=== PATIENT | male | born 1975 | race African-American/Black ===

== ENCOUNTER 2022-10-15 16:33 | Inpatient (IN) | payer MEDICAID ==
[~2022-10-15] VITALS: Ht 172.7 cm; Wt 95.5 kg
[2022-10-15 17:31] VITALS: TEMP 99.6
[2022-10-15 18:00] LABS: BASOPHILS # (AUTO) 0.1 X10'3 (0-0.2); BASOPHILS % (AUTO) 0.3 % (0-1); EOSINOPHILS % (AUTO) 0.1 % (0-6); HEMATOCRIT 48.1 % (42.0-52.0); HEMOGLOBIN 15.9 g/dl (14.0-17.9); LYMPHOCYTES # (AUTO) 1.5 X10'3 (1.1-4.8); LYMPHOCYTES % (AUTO) 9.4 % (21-51); MEAN CORPUSCULAR HEMOGLOBIN 32.2 PG (27.0-31.0); MEAN CORPUSCULAR HGB CONC 33.1 g/dL (33.0-36.5); MEAN CORPUSCULAR VOLUME 97.3 FL (78-98); MEAN PLATELET VOLUME 7.8 FL (7.4-10.4); MONOCYTES % (AUTO) 6.2 % (2-12); NEUTROPHILS # (AUTO) 13.1 X10'3 (1.8-7.7); PLATELET COUNT 248 X10'3 (140-440); RED BLOOD COUNT 4.94 X10'6 (4.70-6.10); WHITE BLOOD COUNT 15.6 X10'3 (4.5-11.0)
[2022-10-15 18:18] LABS: ALANINE AMINOTRANSFERASE 13 U/L (12-78); ALBUMIN 3.9 G/DL (3.4-5.0); ALBUMIN/GLOBULIN RATIO 0.8 (1.1-1.5); ALKALINE PHOSPHATASE 99 IU/L (46-116); ANION GAP 8 (8-16); ASPARTATE AMINO TRANSFERASE 20 U/L (10-37); BILIRUBIN,TOTAL 0.9 MG/DL (0.1-1.0); BLOOD UREA NITROGEN 15 MG/DL (7-18); BUN/CREATININE RATIO 11.1 (10.0-20.0); CALCIUM 9.4 MG/DL (8.5-10.1); CHLORIDE 102 MMOL/L (99-107); CREATININE 1.35 MG/DL (0.60-1.10); GLUCOSE 130 MG/DL (70-104); LIPASE < 50 U/L (73-393); POTASSIUM 3.3 MMOL/L (3.5-5.1); SODIUM 140 MMOL/L (135-145); TOTAL CARBON DIOXIDE 29.6 MMOL/L (24-32); TOTAL PROTEIN 8.5 G/DL (6.4-8.2); eCRCL 64 ML/MIN; eGFR 56 ML/MIN
[2022-10-15] MEDS ORDERED: iohexol 300mg/ml 100ml inj. ONE (18:26)
[2022-10-15 19:12] LABS: ETHANOL < 10 MG/DL (<10)
[2022-10-15] MEDS ORDERED: ringers solution, lacted 1,000 ML IV ONE (19:30)
[2022-10-15] MEDS ORDERED: meperidine/PF 50mg/ml syringe IV ONE (19:30)
[2022-10-15] MEDS ORDERED: bisacodyl 10mg suppository rectal RC ONE (19:30)
[2022-10-15] MEDS ORDERED: LORazepam 2 mg/ml vial IV ONE (19:30)
[2022-10-15] MEDS ORDERED: ketorolac tromethamine 15mg/ml inj. IV ONE (19:30)
[2022-10-15 19:44] LABS: MAGNESIUM 2.5 MG/DL (1.5-2.4)
[2022-10-15 19:51] VITALS: BP 158/90; PULSE 75; O2SAT 98
[2022-10-15] MEDS ORDERED: piperacillin/tazo 3.375gm/50ml 50 ML IV ONE (20:15)
[2022-10-15 20:30] VITALS: RESP 18
[2022-10-15] MEDS ORDERED: diatr meglu/diatrizoate 30ml oral sol.-(3 dose) bottle ONE ×2 (20:41→20:45)
--- NOTE | 2022-10-15 20:45 | NUR ---
Failed attempt to insert NG, Dr. Morales at bedside,states hold off for now.Primary Nurse Lili made aware.
[2022-10-15 21:04] LABS: CREATINE KINASE 374 U/L (39-308)
[2022-10-15] MEDS ORDERED: morphine 2 MG/ML inj. syringe IV PRN ×2 (21:20)
[2022-10-15] MEDS ORDERED: ondansetron/PF 4mg/2ml inj IV PRN (21:20)
[2022-10-15] MEDS ORDERED: normal saline 1000ml 1,000 ML IV SCH (21:20)
[2022-10-15] MEDS ORDERED: albuterol 2.5 MG/3 ML nebule NEB PRN (21:20)
[2022-10-15] MEDS ORDERED: potassium Cl 40MEQ/1/2NS 520ml 520 ML IV PRN (21:20)
[2022-10-15] MEDS ORDERED: ipratropium/albuterol 3ml nebule NEB PRN (21:20)
[2022-10-15] MEDS ORDERED: mag hydrox/Alum hydrox/simeth 30ml oral suspension PO PRN (21:20)
[2022-10-15] MEDS ORDERED: potassium Cl 20 mEq SR tablet PO PRN ×2 (21:20)
[2022-10-15] MEDS ORDERED: acetaminophen 325mg tablet PO PRN (21:20)
[2022-10-15] MEDS ORDERED: magnesium 4gm in 100ml NS 100 ML IV PRN (21:20)
[2022-10-15 21:57] LABS: APTT 24 SECONDS (22-32); PROTHROMBIN TIME 10.9 SECONDS (9.0-12.0)
[2022-10-15 22:02] VITALS: PULSE 76; RESP 16; O2SAT 97
[2022-10-15] MEDS ORDERED: ONDA4TAB12 PO (22:50)
[2022-10-16] MEDS ORDERED: nicotine 14mg patch - 24hr TD SCH (08:00)
[2022-10-16] MEDS ORDERED: K and/or MAG REPLACEMENT MC SCH (08:00)
[2022-10-16] MEDS ORDERED: enoxaparin 40mg/0.4ml syringe SQ SCH (20:00)
== END 2022-10-15 23:01 | disposition left against medical advice (07) | DRG 247 ==
LOC: ER 16:34 → ED HOLD 21:25 → UNDODEPER 23:21
PROVIDERS: ADMIT Family Medicine; ATTEND Internal Medicine
PROC: BW211ZZ Computerized Tomography (CT Scan) of Abdomen and Pelvis using Low Osmolar Contrast (ICD-10-PCS; principal; 2022-10-15)
DX: K56.0 Paralytic ileus (principal); M62.82 Rhabdomyolysis; E78.00 Pure hypercholesterolemia, unspecified; E86.0 Dehydration; F12.90 Cannabis use, unspecified, uncomplicated; F17.290 Nicotine dependence, other tobacco product, uncomplicated; Z53.29 Procedure and treatment not carried out because of patient's decision for other reasons; N28.9 Disorder of kidney and ureter, unspecified; I10 Essential (primary) hypertension; Z82.3 Family history of stroke; Z82.49 Family history of ischemic heart disease and other diseases of the circulatory system; Z88.0 Allergy status to penicillin; Z90.49 Acquired absence of other specified parts of digestive tract; Z71.6 Tobacco abuse counseling; Z79.899 Other long term (current) drug therapy
CPT/HCPCS: 36415; 74018; 74176; 74177; 80053; 80320; 82550; 83605; 83690; 83735; 83874; 85025; 85610; 85730; 87040; 94760; 96365; 96375; 99285; G0378; J1885; J2060; J2175; J2543; J3490; J7030; J7120; Q9963; Q9967

== ENCOUNTER 2023-09-09 21:09 | Inpatient (IN) | payer MEDICAID, SELFPAY ==
[~2023-09-09] VITALS: Ht 172.7 cm; Wt 124.0 kg
[~2023-09-09 21:09] MED LIST: ONDA-243 PO
[2023-09-09 22:06] LABS: BASOPHILS % (AUTO) 0.4 % (0-1); EOSINOPHILS # (AUTO) 0.1 X10'3 (0-0.9); EOSINOPHILS % (AUTO) 1.6 % (0-6); HEMATOCRIT 43.5 % (42.0-52.0); HEMOGLOBIN 14.6 g/dl (14.0-17.9); LYMPHOCYTES # (AUTO) 2.8 X10'3 (1.1-4.8); LYMPHOCYTES % (AUTO) 47.4 % (21-51); MEAN CORPUSCULAR HEMOGLOBIN 32.6 PG (27.0-31.0); MEAN CORPUSCULAR HGB CONC 33.5 g/dL (33.0-36.5); MEAN CORPUSCULAR VOLUME 97.3 FL (78-98); MEAN PLATELET VOLUME 7.3 FL (7.4-10.4); MONOCYTES # (AUTO) 0.6 X10'3 (0-0.9); NEUTROPHILS # (AUTO) 2.4 X10'3 (1.8-7.7); NEUTROPHILS % (AUTO) 40.6 % (42-75); PLATELET COUNT 243 X10'3 (140-440); RED BLOOD COUNT 4.47 X10'6 (4.70-6.10); RED CELL DISTRIBUTION WIDTH 13.9 % (11.5-14.5); WHITE BLOOD COUNT 5.8 X10'3 (4.5-11.0)
[2023-09-09] MEDS: HYDROmorphone 1 mg/ml syringe IV ONE (22:07)
[2023-09-09] MEDS: ondansetron/PF 4mg/2ml inj IV ONE (22:07)
[2023-09-09] MEDS ORDERED: HYDR12.55 PO (22:29)
[2023-09-09] MEDS ORDERED: enalaprilat dihydrate 2.5mg/2ml vial IV PRN (22:45)
[2023-09-09] MEDS ORDERED: proCHLORperazine 10 MG/2 ml inj IV PRN (22:45)
[2023-09-09] MEDS ORDERED: ondansetron/PF 4mg/2ml inj IV PRN (22:45)
[2023-09-09] MEDS ORDERED: morphine 4 MG/ML inj SYRINge IV PRN (22:45)
[2023-09-09] MEDS ORDERED: ringers solution, lacted 1,000 ML IV SCH (22:45)
[2023-09-09] MEDS ORDERED: morphine 2 MG/ML inj. syringe IV PRN (22:45)
[2023-09-09] MEDS ORDERED: labetalol 20mg/4ml (5mg/ml) syringe IV PRN (22:45)
[2023-09-09] MEDS ORDERED: meperidine/PF 25mg/ml syringe IV PRN ×2 (22:45)
[2023-09-09 22:50] LABS: APTT 25 SECONDS (22-32); INR 1.1 INR
[2023-09-09 22:51] LABS: ALANINE AMINOTRANSFERASE 27 U/L (12-78); ALBUMIN 3.5 G/DL (3.4-5.0); ALBUMIN/GLOBULIN RATIO 0.9 (1.1-1.5); ALKALINE PHOSPHATASE 83 IU/L (46-116); ANION GAP 7 (8-16); ASPARTATE AMINO TRANSFERASE 23 U/L (10-37); BILIRUBIN,TOTAL 0.5 MG/DL (0.1-1.0); BLOOD UREA NITROGEN 11 MG/DL (7-18); BUN/CREATININE RATIO 7.6 (10.0-20.0); CALCIUM 8.6 MG/DL (8.5-10.1); CHLORIDE 107 MMOL/L (99-107); CREATININE 1.44 MG/DL (0.60-1.10); GLUCOSE 105 MG/DL (70-104); POTASSIUM 3.9 MMOL/L (3.5-5.1); SODIUM 141 MMOL/L (135-145); TOTAL CARBON DIOXIDE 26.9 MMOL/L (24-32); TOTAL PROTEIN 7.6 G/DL (6.4-8.2); eCRCL 60 ML/MIN; eGFR 63 ML/MIN
[2023-09-09] MEDS ORDERED: midazolam 1 mg/ML 2ml injection ONE (23:10)
[2023-09-09] MEDS ORDERED: fentaNYL/PF 50MCG/1 ML 2ML syringe ONE (23:10)
[2023-09-09] MEDS ORDERED: LIDOcaine 2% (20mg/ml) 5ml vial ONE (23:11)
[2023-09-09] MEDS ORDERED: propofol inj 20 ML IV ONE (23:22)
[2023-09-09] MEDS ORDERED: succinylcholine 20mg/ml inj IV ONE (23:22)
[2023-09-09] MEDS ORDERED: ceFAZolin 1000mg inj ONE ×2 (23:28)
[2023-09-09] MEDS ORDERED: sevoflurane 250ml liquid IH ONE (23:30)
[2023-09-09] MEDS: BUPIVAcaine 0.5% inj/PF 30 ml vial IJ ONE (23:35)
[2023-09-09] MEDS: bacitracin 15gm ointment TP ONE (23:56)
[2023-09-10] VITALS (17 sets, daily range): BP systolic 121–166; BP diastolic 75–96; PULSE 59–75; RESP 14–59; TEMP 97.6–98.3; O2SAT 98–100
[2023-09-10] MEDS ORDERED: acetaminophen 1,000mg/100ml IV 100 ML IV ONE (00:13)
[2023-09-10] MEDS: meperidine/PF 25mg/ml syringe IV PRN (01:02)
[2023-09-10] MEDS: BUPIVAcaine 0.5% inj/PF 30 ML ONE (03:45)
[2023-09-10] MEDS: HYDROcodone/acetaminophen 10/325mg tab PO ONE (04:03)
[2023-09-10] MEDS ORDERED: hydrocortisone sod succ/PF 250mg/2ml inj. IV ONE (08:00)
== END 2023-09-10 11:35 | disposition home or self-care (01) | DRG 483 ==
LOC: ER 21:10 → OBSVTOIN 09-10 01:26 → SUR 3N 09-10 01:26
PROVIDERS: ADMIT Urology; ATTEND Urology
PROC: 0VQSXZZ Repair Penis, External Approach (ICD-10-PCS; principal; 2023-09-09)
DX: S39.840A Fracture of corpus cavernosum penis, initial encounter (principal); E78.00 Pure hypercholesterolemia, unspecified; X58.XXXA Exposure to other specified factors, initial encounter; I10 Essential (primary) hypertension; Z86.73 Personal history of transient ischemic attack (TIA), and cerebral infarction without residual deficits; Y93.89 Activity, other specified; Y92.89 Other specified places as the place of occurrence of the external cause; Y99.8 Other external cause status; Z90.49 Acquired absence of other specified parts of digestive tract
CPT/HCPCS: 36415; 80053; 85025; 85610; 85730; 87081; 99285; A4618; A6223; A6266; A7000; G0378; J0131; J0330; J0665; J0690; J1170; J2175; J2250; J2405; J2704; J3010; J3490

== ENCOUNTER 2023-11-23 19:53 | Emergency (ER) | payer MEDICAID, OTHER ==
[~2023-11-23] VITALS: Ht 175.3 cm; Wt 120.6 kg
[~2023-11-23 19:53] MED LIST changes: +HYDR12.55 PO; -ONDA-243 PO
[2023-11-23] MEDS ORDERED: IBUP-1984 PO (21:02)
[2023-11-23] MEDS ORDERED: ACET-1025 PO (21:02)
[2023-11-23] MEDS: acetaminophen 325mg tablet PO ONE (21:03)
[2023-11-23] MEDS: ibuprofen tablet 400 MG TABLET PO ONE (21:03)
[2023-11-23 21:06] VITALS: BP 138/82; PULSE 88; RESP 18; TEMP 98.5; O2SAT 97
== END 2023-11-23 21:07 | disposition home or self-care (01) ==
LOC: ER 19:53
DX: M54.59 Other low back pain (principal); R20.2 Paresthesia of skin; E78.00 Pure hypercholesterolemia, unspecified; I10 Essential (primary) hypertension; Z88.0 Allergy status to penicillin; Z79.899 Other long term (current) drug therapy; Z72.89 Other problems related to lifestyle; Z90.49 Acquired absence of other specified parts of digestive tract; V89.2XXA Person injured in unspecified motor-vehicle accident, traffic, initial encounter; Y93.89 Activity, other specified; Y92.89 Other specified places as the place of occurrence of the external cause; Y99.8 Other external cause status
CPT/HCPCS: 99283; J7030